=== PATIENT | female | born 1985 | race Caucasian/White ===

== ENCOUNTER 2017-06-15 16:15 | Emergency (ER) | payer OTHER ==
--- NOTE | 2017-06-15 18:33 | ED Physician Documentation ---
PD HPI BACK INJURY - Stated complaint Stated Complaint: LE/BACK PX - History obtained from History obtained from: Patient - History of Present Illness Location: Left, Lower (knee and ankle) Type of injury: Fall, Twist (she fell and landed forward with some twisting of left ankle and then fell onto left knee, hands and knees. Also with pain left loumbar muscles.) Where injury occurred: Work Timing - onset: Today Timing - details: Abrupt onset Quality: Pain (left ankle and knee), Spasm (lower back) Improved by: Rest Worsened by: Moving Associated symptoms: No: Weakness, Numbness, Incontinent of urine Contributing factors: Work related Similar symptoms before: Has not had sx before Recently seen: Not recently seen Review of Systems Skin: denies: Abrasion (s), Laceration (s) Neurologic: denies: Focal weakness, Numbness, Near syncope, Altered mental status, Headache, Head injury PD PAST MEDICAL HISTORY - Past Medical History Cardiovascular: None Respiratory: None Neuro: Seizure disorder Endocrine/Autoimmune: None Musculoskeletal: None - Present Medications Home Medications: Ambulatory Orders Medication Instructions Recorded Confirmed Lamotrigine [Lamictal Xr] 200 mg PO DAILY 06/15/17 06/15/17 - Allergies Allergies/Adverse Reactions: Allergies Allergy/AdvReac Type Severity Reaction Status Date / Time No Known Drug Allergies Allergy Verified 06/15/17 16:43 PD ED PE NORMAL - Vitals Vital signs reviewed: Yes - General General: Alert and oriented X 3, Well developed/nourished - HEENT HEENT: Atraumatic - Abdomen Abdomen: Soft, Non tender, Other (obese) - Back Back: No CVA TTP, No spinal TTP (tender left lower back muscles in iliac crest and SI area. ) - Derm Derm: Normal color, Warm and dry - Extremities Extremities: Other (left ankle with some tenderness laterally and anterior. No defmority. No laxity with stress testing. Left knee with tenderness anterior and inferior of patella. Can extend without much pain. No pain nor laxity with ligament stress testing. ) - Neuro Neuro: Alert and oriented X 3, No motor deficit, No sensory deficit, Normal speech Results - Vitals Vitals: Oxygen O2 Source Room air - Rads (name of study) ankle left Radiology: Prelim report reviewed (normal) knee left Radiology: Prelim report reviewed (normal) PD MEDICAL DECISION MAKING - ED course Complexity details: reviewed results, re-evaluated patient (she is not wanting much strong pain meds. Only wanted a note for 1-2 days for work, then wants to resume normal. ), considered differential (seems like ankle sprain and knee contusion, with some muscular back strain. ), d/w patient Departure - Departure Disposition: 01 Home, Self Care Clinical Impression: Accidental fall Qualifiers: Encounter type: initial encounter Qualified Code(s): W19.XXXA - Unspecified fall, initial encounter Ankle sprain Qualifiers: Encounter type: initial encounter Involved ligament of ankle: other ligament Laterality: left Qualified Code(s): S93.492A - Sprain of other ligament of left ankle, initial encounter Knee contusion Qualifiers: Encounter type: initial encounter Laterality: left Qualified Code(s): S80.02XA - Contusion of left knee, initial encounter Low back strain Qualifiers: Encounter type: initial encounter Qualified Code(s): S39.012A - Strain of muscle, fascia and tendon of lower back, initial encounter Condition: Stable Record reviewed to determine appropriate education?: Yes Instructions: ED Low Back Pain Injury, ED Sprain Ankle, ED Contusion Lower Ext Comments: Ibuprofen 400-600 mg three times daily. Add Tylenol as needed for pains. Xrays are okay but presume the knee is bruised and ankle/back sprained. Likely with be sore for several days. Progress activity as able. Forms: Activity restrictions Discharge Date/Time: 06/15/17 20:10
[2017-06-15] MEDS ORDERED: ACETAMINOPHEN 325 MG TABLET PO STA (18:48)
[2017-06-15] MEDS ORDERED: METHOCARBAMOL 500 MG TABLET PO STA (18:48)
[2017-06-15] MEDS ORDERED: IBUPROFEN 600 MG TABLET PO STA (18:48)
[2017-06-15] MEDS ORDERED: METHOCARBAMOL 500 MG TABLET PO ONE (18:55)
[2017-06-15] MEDS ORDERED: IBUPROFEN 600 MG TABLET PO ONE (18:55)
[2017-06-15] MEDS ORDERED: ACETAMINOPHEN 325 MG TABLET PO ONE (18:56)
--- NOTE | 2017-06-15 19:25 | XRAY Preliminary Report ---
Exam: XR Ankle 3 View LT IMPRESSION: Normal ankle radiography. [facility] SITE ID: [id number]
--- NOTE | 2017-06-15 19:25 | XRAY Preliminary Report ---
Exam: XR Knee 4 View LT IMPRESSION: Normal knee radiography. [facility] SITE ID: [id number]
--- NOTE | 2017-06-15 19:27 | XRAY Report ---
EXAM: LEFT KNEE RADIOGRAPHY EXAM DATE: 06/15/2017 07:20 PM. CLINICAL HISTORY: Fall onto knees with left pain. COMPARISON: None. TECHNIQUE: 4 views. FINDINGS: Bones: Normal. No fractures or bone lesions. Joints: Normal. No effusion. No subluxations. Soft Tissues: Normal. No soft tissue swelling. IMPRESSION: Normal knee radiography. [facility] Referring Provider Line: [phone] SITE ID: [id number]
--- NOTE | 2017-06-15 19:28 | XRAY Report ---
EXAM: LEFT ANKLE RADIOGRAPHY EXAM DATE: 06/15/2017 07:20 PM. CLINICAL HISTORY: Fall onto knees and ankle twist. COMPARISON: None. TECHNIQUE: 3 views. FINDINGS: Bones: Normal. No fractures or bone lesions. Joints: Normal. No effusion. No subluxations. The ankle mortise is normally aligned. Soft Tissues: Normal. No soft tissue swelling. IMPRESSION: Normal ankle radiography. [facility] Referring Provider Line: [phone] SITE ID: [id number]
[2017-06-15 20:09] VITALS: BP 127/89
== END 2017-06-15 20:10 | disposition home or self-care (01) ==
LOC: ED 16:15
DX: S93.402A Sprain of unspecified ligament of left ankle, initial encounter (principal); S80.02XA Contusion of left knee, initial encounter; S39.012A Strain of muscle, fascia and tendon of lower back, initial encounter; W01.0XXA Fall on same level from slipping, tripping and stumbling without subsequent striking against object, initial encounter
CPT/HCPCS: 73564; 73610; 99282; 99283; A9270; 1040M

== ENCOUNTER 2020-02-22 13:25 | Outpatient (CLI) | payer OTHER | END 2020-02-22 13:26 | disposition home or self-care (01) | LOC: COV 13:25 | PROVIDERS: ATTEND Family Medicine | DX: R05 Cough (principal); R50.9 Fever, unspecified | CPT/HCPCS: 81599 ==